=== PATIENT | female | born 1945 | race Caucasian/White ===

== ENCOUNTER 2021-05-28 17:56 | Emergency (ER) | payer MEDICARE, BC, SELFPAY ==
[2021-05-28 18:22] VITALS: BP 144/81; PULSE 101; RESP 16; TEMP 38.4; O2SAT 94; BMI 37.9
[2021-05-28 18:45] LABS: UTC Influenza A Antigen Negative (Negative); UTC Influenza B Antigen Negative (Negative)
--- NOTE | 2021-05-28 18:45 | HMH.EDUTC ---
[facility] [place] Disposition Clinical Impression: Fever of unknown origin Nausea and vomiting Qualifiers: Vomiting type: unspecified Qualified Code(s): R11.2 - Nausea with vomiting, unspecified Disposition: Left Against Medical Advice Condition on Discharge: Fair Referrals: Kiran Gant MD [Primary Care Provider] - As needed Medical Decision Making - Servando Inquiry Pt receiving controlled substance: No Servando was queried for this patient: No Vital Signs: 05/28/21 18:22 Temperature 101.1 F H Temperature Source Oral Pulse Rate [Left] 101 H Respiratory Rate 16 Blood Pressure [Right Arm] 144/81 H Blood Pressure Mean [Right Arm] 102 02 Sat by Pulse Oximetry 94 L - Lab Data Lab results reviewed: Yes: I reviewed the patient's lab results. Lab Results 05/28/21 18:24: Influenza Type A Ag Negative, Influenza Type B Ag Negative 05/28/21 18:47: Group A Strep Rapid Negative Orders (Tests/Meds): ED MEDICATIONS Discontinued Medications Generic Name Dose Route Start Last Admin Trade Name Promise PRN Reason Stop Dose Admin Acetaminophen 650 mg 05/28/21 18:25 05/28/21 18:26 Acetaminophen 325mg Tab PO 05/28/21 18:26 650 mg ONCE ONE Administration Ondansetron HCl 4 mg 05/28/21 18:46 05/28/21 18:55 Ondansetron 4mg Odt SL 05/28/21 18:47 4 mg ONCE ONE Administration ORDERS Category Date Time Status Strep Screen Confirmation Stat Micro 05/28/21 18:47 Received Medical Decision Narrative: Patient flu test back and negative Patient states that nely helped with nausea Discussed with patient due to scratchy throat and recommended strep test and she agreed awaiting strep test results While waiting for strep test results patient got up and walked out of [facility] and said we can call her she needed to leave again recommended that patient stay and wait results and she said she wanted to go home and left [facility] [place] HPI - General Stated complaint: fever Time Seen by Provider: 05/28/21 18:45 Mode of Arrival: Ambulatory Source of Information: Patient Limitations: No Limitations Description of Symptoms (Recalled from Triage Doc. by RN): pt c/o n/v and chills since this am. HEENT Symptoms (Recalled from RN notes): No Resp Symptoms (Recalled from RN notes): No Skin Symptoms (Recalled from RN notes): No MS Symptoms (Recalled from RN notes): No Functional Status (Recalled from RN notes): wnl - History of Present Illness Provider Complaint: Patient states that she has been feeling achy today States that earlier she was going to a game and started vomiting States that she is feeling sick at her stomach and having chills and body aches like she may have the flu and her throat felt scratchy - Related Data Allergies Allergy/AdvReac Type Severity Reaction Status Date / Time celecoxib [From CELEBREX] Allergy Unknown Verified 05/28/21 18:26 - Worker's Comp Is this a Worker's Comp case?: No H History - Hepatitis A Screen Drug use history?: No High risk sexual behaviors?: No History of sexually transmitted infection?: No Currently employed?: No Childcare worker?: No Do you have indoor plumbing?: Yes Do you have electricity?: Yes Attestation statement:: This patient has been screened for Hepatitis A risk factors. I have reviewed the patient's past medical history: Yes ROS Obtained: Yes All systems reviewed & no additional complaints, Yes Systems reviewed as appropriate & no additional complaints - Constitutional Constitutional: Reports system reviewed and no additional complaints, except as docu, Reports body ache, Reports chills, Reports fever(s) - ENT Ears, Nose, Mouth, and Throat: Reports system reviewed and no additional complaints, except as docu - Cardiovascular Cardiovascular: Reports system reviewed and no additional complaints, except as docu - Respiratory Respiratory: Reports system reviewed and no additional complaints, except as docu - Gastrointestinal Gastrointest
--- NOTE | 2021-05-28 19:06 | PC.NURSE ---
pt AMA. pt would not sign paperwork.
[2021-05-28 19:11] LABS: Strep Scrn Group A (Rapid) Negative (Negative)
[2021-05-28 19:18] VITALS: BP 0/0; PULSE 0; RESP 0; TEMP -17.7; TEMP 0
== END 2021-05-28 19:18 | disposition left against medical advice (07) ==
PROVIDERS: Emergency Provider Nurse Practitioner; PCP Family Medicine
DX: R50.9 Fever, unspecified (principal); R11.2 Nausea with vomiting, unspecified
CPT/HCPCS: 87430; 87804; 99212; G0463

== ENCOUNTER → 2022-02-03 09:11 | Outpatient (CLI) | payer MEDICARE, BC, SELFPAY ==
[2022-02-03 18:57] LABS: Alanine Aminotransferase 33 U/L (12-78); Albumin Level 3.8 g/dl (3.5-5.0); Albumin/Globulin Ratio 1.3 (1.1-1.8); Alkaline Phosphatase 132 U/L (38-126); Anion Gap 10.3 mEq/L (5-15); Aspartate Amino Transferase 39 U/L (14-36); Blood Urea Nitrogen 19 mg/dl (7-17); Calcium 9.2 mg/dl (8.4-10.2); Carbon Dioxide 29 mmol/L (22.0-30.0); Chloride 104 mmol/L (98-107); Chol/HDL Ratio 3.8 (1-3.5); Cholesterol 209 mg/dl (140-200); Estimated Glomerular Filt Rate 48 ml/min (>60); GFR (African American) 58 ML/MIN (>60); Glucose 115 mg/dl (74-100); HDL Cholesterol 55 mg/dl (40-60); Potassium 4.3 mmoL/L (3.5-5.1); Sodium 139 mmol/L (136-145); Total Protein,Serum 6.8 g/dl (6.3-8.2); Triglycerides 126 mg/dl (30-150); VLDL Cholesterol 25 mg/dL (0-40)
[2022-02-03 19:15] LABS: Hemoglobin A1C 5.8 % (4.0-6.0)
[2022-02-03 19:44] LABS: Direct LDL Cholesterol 120.12 mg/dL (100-129)
== END ==
PROVIDERS: PCP Nurse Practitioner; Visit Provider Nurse Practitioner
DX: I10 Essential (primary) hypertension (principal); E78.5 Hyperlipidemia, unspecified; R73.01 Impaired fasting glucose
CPT/HCPCS: 80053; 80061; 83036

== ENCOUNTER → 2023-01-03 06:43 | Outpatient (CLI) | payer MEDICARE, BC, SELFPAY ==
[2023-01-03 18:13] LABS: Basophils # 0.1 K/mm3 (0-0.2); Basophils % 1.1 % (0.1-2.0); Eosinophils # 0.1 K/mm3 (0.0-0.4); Eosinophils % 2.4 % (0.1-12.0); Hematocrit 41.3 % (37.0-47.0); Hemoglobin 13.3 g/dL (12.2-16.2); Lymphocytes # 1.5 K/mm3 (0.7-4.5); Lymphocytes % 28.3 % (10-50); Mean Corpuscular HGB Conc 32.2 g/dL (31.8-35.4); Mean Corpuscular Hemoglobin 32.7 pg (27.0-31.2); Mean Corpuscular Volume 101.6 fl (81-99); Mean Platelet Volume 10.3 fl (7.4-10.4); Monocytes # 0.3 K/mm3 (0.1-1.0); Monocytes % 6.5 % (1.7-9.3); Neutrophils # 3.2 K/mm3 (1.8-7.8); Neutrophils % 61.7 % (37.0-80.0); Platelet Count 135 K/mm3 (142-424); Red Blood Count 4.07 M/mm3 (4.20-5.40); Red Cell Distribution Width 14.4 % (11.5-17.5); White Blood Count 5.1 K/mm3 (4.8-10.8)
[2023-01-03 18:24] LABS: Albumin Level 3.1 g/dl (3.5-5.0); Albumin/Globulin Ratio 0.9 (1.1-1.8); Alkaline Phosphatase 481 U/L (38-126); Bilirubin,Total 2.1 mg/dl (0.2-1.3); Calcium 8.7 mg/dl (8.4-10.2); Chloride 104 mmol/L (98-107); Globulin 3.4 g/dL (1.3-3.2); Glucose 143 mg/dl (74-100); HDL Cholesterol 44 mg/dl (40-60); Potassium 3.9 mmoL/L (3.5-5.1); Sodium 135 mmol/L (136-145); Total Protein,Serum 6.5 g/dl (6.3-8.2)
[2023-01-03 18:25] LABS: Alanine Aminotransferase 89 U/L (12-78); Anion Gap 8.9 mEq/L (5-15); Aspartate Amino Transferase 155 U/L (14-36); Blood Urea Nitrogen 16 mg/dl (7-17); Carbon Dioxide 26 mmol/L (22.0-30.0); Cholesterol 176 mg/dl (140-200); Creatinine,Urine Random 122 mg/dL (Not Estab.); Estimated Glomerular Filt Rate 61 ml/min (>60); GFR (African American) 73 ML/MIN (>60); Triglycerides 104 mg/dl (30-150); VLDL Cholesterol 21 mg/dL (0-40)
[2023-01-03 18:27] LABS: Microalbumin/Creatinine Ratio 5.2
[2023-01-03 18:40] LABS: Hemoglobin A1C 5.5 % (4.0-6.0)
[2023-01-03 18:54] LABS: Thyroid Stimulating Hormone 2.05 uIU/mL (0.465-4.68)
== END ==
PROVIDERS: PCP Nurse Practitioner; Visit Provider Nurse Practitioner
DX: E78.5 Hyperlipidemia, unspecified (principal); I10 Essential (primary) hypertension; M19.90 Unspecified osteoarthritis, unspecified site; R73.01 Impaired fasting glucose; R50.9 Fever, unspecified
CPT/HCPCS: 80053; 80061; 82043; 82570; 83036; 84443; 85025

== ENCOUNTER → 2023-02-02 23:26 | Outpatient (CLI) | payer MEDICARE, BC, SELFPAY | LOC: LAB.DROPOF 23:27 | PROVIDERS: PCP Nurse Practitioner; Visit Provider Nurse Practitioner | DX: D69.6 Thrombocytopenia, unspecified (principal); R79.89 Other specified abnormal findings of blood chemistry | CPT/HCPCS: 80053; 85025 ==

== ENCOUNTER 2023-05-10 18:14 | Outpatient (CLI) | payer MEDICARE, BC, SELFPAY ==
[2023-05-10 18:01] LABS: Basophils # 0.1 K/mm3 (0-0.2); Basophils % 1.4 % (0.1-2.0); Eosinophils # 0.1 K/mm3 (0.0-0.4); Eosinophils % 2.9 % (0.1-12.0); Hematocrit 38.6 % (37.0-47.0); Hemoglobin 12.1 g/dL (12.2-16.2); Lymphocytes # 1.6 K/mm3 (0.7-4.5); Mean Corpuscular HGB Conc 31.4 g/dL (31.8-35.4); Mean Corpuscular Hemoglobin 34.2 pg (27.0-31.2); Mean Platelet Volume 9.5 fl (7.4-10.4); Monocytes # 0.3 K/mm3 (0.1-1.0); Monocytes % 7.1 % (1.7-9.3); Neutrophils # 2.6 K/mm3 (1.8-7.8); Neutrophils % 55.5 % (37.0-80.0); Platelet Count 106 K/mm3 (142-424); Red Blood Count 3.55 M/mm3 (4.20-5.40); White Blood Count 4.7 K/mm3 (4.8-10.8)
[2023-05-10 18:13] LABS: Chloride 107 mmol/L (98-107); Potassium 3.6 mmoL/L (3.5-5.1); Sodium 137 mmol/L (136-145)
[2023-05-10 18:16] LABS: Alanine Aminotransferase 28 U/L (12-78); Albumin Level 2.8 g/dl (3.5-5.0); Albumin/Globulin Ratio 0.8 (1.1-1.8); Alkaline Phosphatase 202 U/L (38-126); Anion Gap 5.6 mEq/L (5-15); Aspartate Amino Transferase 53 U/L (14-36); Bilirubin,Total 1.8 mg/dl (0.2-1.3); Blood Urea Nitrogen 14 mg/dl (7-17); Calcium 8.7 mg/dl (8.4-10.2); Carbon Dioxide 28 mmol/L (22.0-30.0); Estimated Glomerular Filt Rate 54 ml/min (>60); GFR (African American) 65 ML/MIN (>60); Globulin 3.3 g/dL (1.3-3.2); Glucose 103 mg/dl (74-100); Total Protein,Serum 6.1 g/dl (6.3-8.2)
[2023-05-10 18:30] LABS: Hemoglobin A1C 4.5 % (4.0-6.0)
[2023-05-10 19:12] LABS: Creatinine,Urine Random 211 mg/dL (Not Estab.)
[2023-05-10 19:36] LABS: Microalbumin/Creatinine Ratio 4.5
== END 2023-05-10 23:59 ==
LOC: LAB.DROPOF 18:15
PROVIDERS: PCP Nurse Practitioner; Visit Provider Nurse Practitioner
DX: R73.01 Impaired fasting glucose (principal); I10 Essential (primary) hypertension; R79.89 Other specified abnormal findings of blood chemistry; R30.0 Dysuria; B96.89 Other specified bacterial agents as the cause of diseases classified elsewhere
CPT/HCPCS: 80053; 82043; 82570; 83036; 85025; 87086

== ENCOUNTER 2023-06-20 16:00 | Outpatient (CLI) | payer MEDICARE, BC, SELFPAY ==
[2023-06-20 19:02] LABS: Chloride 105 mmol/L (98-107); Sodium 139 mmol/L (136-145)
[2023-06-20 19:03] LABS: Potassium 3.7 mmoL/L (3.5-5.1)
[2023-06-20 19:06] LABS: Anion Gap 8.7 mEq/L (5-15); Blood Urea Nitrogen 12 mg/dl (7-17); Calcium 9.2 mg/dl (8.4-10.2); Carbon Dioxide 29 mmol/L (22.0-30.0); Estimated Glomerular Filt Rate 61 ml/min (>60); GFR (African American) 73 ML/MIN (>60); Glucose 113 mg/dl (74-100)
[2023-06-20 19:22] LABS: INR 1.21 (0.9-1.1); Prothrombin Time 12.9 seconds (10.1-12.5)
== END 2023-06-20 23:59 | disposition home or self-care (01) ==
LOC: LAB.DROPOF 06-21 10:03
PROVIDERS: PCP Nurse Practitioner; Visit Provider Nurse Practitioner
DX: I10 Essential (primary) hypertension (principal); Z79.01 Long term (current) use of anticoagulants
CPT/HCPCS: 80048; 85610

== ENCOUNTER 2023-10-26 19:16 | Outpatient (CLI) | payer MEDICARE, BC, SELFPAY ==
[2023-10-26 18:24] LABS: Basophils % 0.9 % (0.1-2.0); Eosinophils # 0.1 K/mm3 (0.0-0.4); Eosinophils % 2.3 % (0.1-12.0); Hematocrit 22.6 % (37.0-47.0); Lymphocytes # 1.2 K/mm3 (0.7-4.5); Lymphocytes % 29.4 % (10-50); Mean Corpuscular HGB Conc 30.3 g/dL (31.8-35.4); Mean Corpuscular Volume 108.9 fl (81-99); Mean Platelet Volume 9.6 fl (7.4-10.4); Monocytes # 0.2 K/mm3 (0.1-1.0); Neutrophils # 2.5 K/mm3 (1.8-7.8); Neutrophils % 61.4 % (37.0-80.0); Platelet Count 114 K/mm3 (142-424); Red Blood Count 2.07 M/mm3 (4.20-5.40); Red Cell Distribution Width 16.1 % (11.5-17.5); White Blood Count 4.1 K/mm3 (4.8-10.8)
[2023-10-26 19:47] LABS: Microalbumin < 6.000 mg/L (0-16.7)
[2023-10-26 19:49] LABS: Creatinine,Urine Random 178 mg/dL (Not Estab.)
[2023-10-26 19:50] LABS: Alanine Aminotransferase 23 U/L (12-78); Albumin Level 2.7 g/dl (3.5-5.0); Albumin/Globulin Ratio 0.8 (1.1-1.8); Alkaline Phosphatase 101 U/L (38-126); Anion Gap 6.1 mEq/L (5-15); Aspartate Amino Transferase 38 U/L (14-36); Bilirubin,Total 0.7 mg/dl (0.2-1.3); Blood Urea Nitrogen 34 mg/dl (7-17); Calcium 8.6 mg/dl (8.4-10.2); Carbon Dioxide 25 mmol/L (22.0-30.0); Chloride 110 mmol/L (98-107); Chol/HDL Ratio 2.8 (1-3.5); Cholesterol 141 mg/dl (140-200); Estimated Glomerular Filt Rate 27 ml/min (>60); GFR (African American) 33 ML/MIN (>60); Globulin 3.6 g/dL (1.3-3.2); Glucose 94 mg/dl (74-100); HDL Cholesterol 50 mg/dl (40-60); Potassium 4.1 mmoL/L (3.5-5.1); Sodium 137 mmol/L (136-145); Total Protein,Serum 6.3 g/dl (6.3-8.2); Triglycerides 53 mg/dl (30-150); VLDL Cholesterol 11 mg/dL (0-40)
[2023-10-26 19:54] LABS: Hemoglobin 6.8 g/dL (12.2-16.2)
[2023-10-26 20:02] LABS: Direct LDL Cholesterol 63.35 mg/dL (100-129)
[2023-10-26 20:21] LABS: Thyroid Stimulating Hormone 2.72 uIU/mL (0.465-4.68)
[2023-10-26 20:41] LABS: Vitamin B12 492 pg/mL (239-931)
== END 2023-10-26 23:59 | disposition home or self-care (01) ==
LOC: LAB.DROPOF 19:19
PROVIDERS: PCP Nurse Practitioner; Visit Provider Nurse Practitioner
DX: I10 Essential (primary) hypertension (principal); E78.5 Hyperlipidemia, unspecified; R73.01 Impaired fasting glucose; K74.60 Unspecified cirrhosis of liver; R53.83 Other fatigue
CPT/HCPCS: 80053; 80061; 82043; 82570; 82607; 83036; 84443; 85025

== ENCOUNTER 2023-11-07 11:19 | Outpatient (CLI) | payer MEDICARE, BC, SELFPAY ==
[2023-11-07 20:15] LABS: Basophils % 0.9 % (0.1-2.0); Eosinophils # 0.1 K/mm3 (0.0-0.4); Eosinophils % 3.9 % (0.1-12.0); Hematocrit 25.4 % (37.0-47.0); Hemoglobin 7.9 g/dL (12.2-16.2); Mean Corpuscular HGB Conc 31.2 g/dL (31.8-35.4); Mean Corpuscular Hemoglobin 32.8 pg (27.0-31.2); Mean Corpuscular Volume 105.1 fl (81-99); Mean Platelet Volume 9.2 fl (7.4-10.4); Monocytes # 0.2 K/mm3 (0.1-1.0); Monocytes % 7.5 % (1.7-9.3); Neutrophils # 1.4 K/mm3 (1.8-7.8); Neutrophils % 51.7 % (37.0-80.0); Platelet Count 111 K/mm3 (142-424); Red Blood Count 2.42 M/mm3 (4.20-5.40); Red Cell Distribution Width 16.2 % (11.5-17.5); White Blood Count 2.7 K/mm3 (4.8-10.8)
[2023-11-07 20:42] LABS: Albumin Level 2.8 g/dl (3.5-5.0); Chloride 106 mmol/L (98-107); Sodium 137 mmol/L (136-145)
[2023-11-07 20:45] LABS: Alanine Aminotransferase 22 U/L (12-78); Albumin/Globulin Ratio 0.8 (1.1-1.8); Alkaline Phosphatase 108 U/L (38-126); Aspartate Amino Transferase 40 U/L (14-36); Bilirubin,Total 0.5 mg/dl (0.2-1.3); Blood Urea Nitrogen 20 mg/dl (7-17); Calcium 8.9 mg/dl (8.4-10.2); Carbon Dioxide 26 mmol/L (22.0-30.0); Estimated Glomerular Filt Rate 43 ml/min (>60); GFR (African American) 52 ML/MIN (>60); Globulin 3.6 g/dL (1.3-3.2); Glucose 133 mg/dl (74-100); Total Protein,Serum 6.4 g/dl (6.3-8.2)
== END 2023-11-07 23:59 | disposition home or self-care (01) ==
LOC: LAB.DROPOF 11-08 11:19
PROVIDERS: PCP Nurse Practitioner; Visit Provider Nurse Practitioner
DX: K92.2 Gastrointestinal hemorrhage, unspecified (principal); D50.0 Iron deficiency anemia secondary to blood loss (chronic); I85.00 Esophageal varices without bleeding; N17.9 Acute kidney failure, unspecified
CPT/HCPCS: 80053; 85025

== ENCOUNTER 2023-11-15 10:02 | Outpatient (CLI) | payer MEDICARE, BC, SELFPAY ==
[2023-11-15 18:19] LABS: Eosinophils # 0.1 K/mm3 (0.0-0.4); Eosinophils % 1.5 % (0.1-12.0); Hematocrit 24.7 % (37.0-47.0); Hemoglobin 7.6 g/dL (12.2-16.2); Lymphocytes # 0.9 K/mm3 (0.7-4.5); Lymphocytes % 23.1 % (10-50); Mean Corpuscular HGB Conc 30.8 g/dL (31.8-35.4); Mean Corpuscular Hemoglobin 31.2 pg (27.0-31.2); Mean Corpuscular Volume 101.4 fl (81-99); Monocytes # 0.2 K/mm3 (0.1-1.0); Monocytes % 5.4 % (1.7-9.3); Neutrophils # 2.7 K/mm3 (1.8-7.8); Neutrophils % 68.9 % (37.0-80.0); Platelet Count 153 K/mm3 (142-424); Red Blood Count 2.44 M/mm3 (4.20-5.40); Red Cell Distribution Width 17.2 % (11.5-17.5); White Blood Count 3.9 K/mm3 (4.8-10.8)
[2023-11-15 18:36] LABS: Alanine Aminotransferase 27 U/L (12-78); Albumin Level 2.9 g/dl (3.5-5.0); Albumin/Globulin Ratio 0.8 (1.1-1.8); Alkaline Phosphatase 93 U/L (38-126); Anion Gap 5.4 mEq/L (5-15); Aspartate Amino Transferase 38 U/L (14-36); Bilirubin,Total 0.9 mg/dl (0.2-1.3); Blood Urea Nitrogen 21 mg/dl (7-17); Calcium 8.8 mg/dl (8.4-10.2); Carbon Dioxide 24 mmol/L (22.0-30.0); Chloride 109 mmol/L (98-107); Estimated Glomerular Filt Rate 43 ml/min (>60); GFR (African American) 52 ML/MIN (>60); Globulin 3.5 g/dL (1.3-3.2); Glucose 158 mg/dl (74-100); Potassium 3.4 mmoL/L (3.5-5.1); Sodium 135 mmol/L (136-145); Total Protein,Serum 6.4 g/dl (6.3-8.2)
== END 2023-11-15 23:59 | disposition home or self-care (01) ==
LOC: LAB.DROPOF 11-16 10:02
PROVIDERS: PCP Nurse Practitioner; Visit Provider Nurse Practitioner
DX: D50.0 Iron deficiency anemia secondary to blood loss (chronic) (principal); K92.2 Gastrointestinal hemorrhage, unspecified; I85.00 Esophageal varices without bleeding; N17.9 Acute kidney failure, unspecified; K74.60 Unspecified cirrhosis of liver; I10 Essential (primary) hypertension
CPT/HCPCS: 80053; 85025

== ENCOUNTER 2023-11-20 10:26 | Outpatient (CLI) | payer MEDICARE, BC, SELFPAY ==
[2023-11-20 18:45] LABS: Basophils % 0.6 % (0.1-2.0); Eosinophils # 0.1 K/mm3 (0.0-0.4); Eosinophils % 2.2 % (0.1-12.0); Hematocrit 22.6 % (37.0-47.0); Hemoglobin 7.1 g/dL (12.2-16.2); Lymphocytes # 1.1 K/mm3 (0.7-4.5); Lymphocytes % 26.6 % (10-50); Mean Corpuscular HGB Conc 31.5 g/dL (31.8-35.4); Mean Corpuscular Hemoglobin 32.6 pg (27.0-31.2); Mean Corpuscular Volume 103.5 fl (81-99); Mean Platelet Volume 8.8 fl (7.4-10.4); Monocytes # 0.3 K/mm3 (0.1-1.0); Monocytes % 5.8 % (1.7-9.3); Neutrophils # 2.7 K/mm3 (1.8-7.8); Neutrophils % 64.8 % (37.0-80.0); Platelet Count 128 K/mm3 (142-424); Red Blood Count 2.18 M/mm3 (4.20-5.40); White Blood Count 4.2 K/mm3 (4.8-10.8)
[2023-11-20 19:22] LABS: Chloride 110 mmol/L (98-107); Sodium 138 mmol/L (136-145)
[2023-11-20 19:23] LABS: Potassium 3.6 mmoL/L (3.5-5.1)
[2023-11-20 19:26] LABS: Anion Gap 9.6 mEq/L (5-15); Blood Urea Nitrogen 22 mg/dl (7-17); Calcium 8.8 mg/dl (8.4-10.2); Carbon Dioxide 22 mmol/L (22.0-30.0); Estimated Glomerular Filt Rate 48 ml/min (>60); GFR (African American) 58 ML/MIN (>60); Glucose 132 mg/dl (74-100)
== END 2023-11-20 23:59 | disposition home or self-care (01) ==
LOC: LAB.DROPOF 11-21 10:26
PROVIDERS: PCP Nurse Practitioner; Visit Provider Nurse Practitioner
DX: D50.0 Iron deficiency anemia secondary to blood loss (chronic) (principal); N17.9 Acute kidney failure, unspecified
CPT/HCPCS: 80048; 85025

== ENCOUNTER 2023-11-23 18:23 | Outpatient (CLI) | payer MEDICARE, BC, SELFPAY ==
[2023-11-23 18:06] LABS: Basophils % 0.6 % (0.1-2.0); Eosinophils # 0.1 K/mm3 (0.0-0.4); Eosinophils % 1.8 % (0.1-12.0); Hematocrit 30.1 % (37.0-47.0); Hemoglobin 9.8 g/dL (12.2-16.2); Lymphocytes % 22.7 % (10-50); Mean Corpuscular HGB Conc 32.4 g/dL (31.8-35.4); Mean Corpuscular Hemoglobin 31.7 pg (27.0-31.2); Mean Corpuscular Volume 97.7 fl (81-99); Mean Platelet Volume 8.2 fl (7.4-10.4); Monocytes # 0.3 K/mm3 (0.1-1.0); Monocytes % 6.2 % (1.7-9.3); Neutrophils # 2.9 K/mm3 (1.8-7.8); Neutrophils % 68.8 % (37.0-80.0); Platelet Count 125 K/mm3 (142-424); Red Blood Count 3.08 M/mm3 (4.20-5.40); Red Cell Distribution Width 20.7 % (11.5-17.5); White Blood Count 4.2 K/mm3 (4.8-10.8)
[2023-11-23 18:13] LABS: Albumin Level 2.9 g/dl (3.5-5.0); Chloride 110 mmol/L (98-107); Potassium 3.8 mmoL/L (3.5-5.1); Sodium 139 mmol/L (136-145)
[2023-11-23 18:16] LABS: Alanine Aminotransferase 21 U/L (12-78); Albumin/Globulin Ratio 0.8 (1.1-1.8); Alkaline Phosphatase 106 U/L (38-126); Anion Gap 9.8 mEq/L (5-15); Aspartate Amino Transferase 46 U/L (14-36); Blood Urea Nitrogen 20 mg/dl (7-17); Calcium 8.8 mg/dl (8.4-10.2); Carbon Dioxide 23 mmol/L (22.0-30.0); Estimated Glomerular Filt Rate 43 ml/min (>60); GFR (African American) 52 ML/MIN (>60); Globulin 3.6 g/dL (1.3-3.2); Glucose 120 mg/dl (74-100); Total Protein,Serum 6.5 g/dl (6.3-8.2)
[2023-11-23 19:14] LABS: Hemoglobin A1C 4.3 % (4.0-6.0)
== END 2023-11-23 23:59 | disposition home or self-care (01) ==
LOC: LAB.DROPOF 18:23
PROVIDERS: PCP Nurse Practitioner; Visit Provider Nurse Practitioner
DX: R73.01 Impaired fasting glucose (principal); D50.0 Iron deficiency anemia secondary to blood loss (chronic); N17.9 Acute kidney failure, unspecified; K74.60 Unspecified cirrhosis of liver
CPT/HCPCS: 80053; 83036; 85025

== ENCOUNTER 2023-11-24 18:34 | Outpatient (CLI) | payer MEDICARE, BC, SELFPAY ==
[2023-11-24 19:00] LABS: Occult Blood,Stool Positive (Negative)
== END 2023-11-24 23:59 | disposition home or self-care (01) ==
LOC: LAB.DROPOF 18:36
PROVIDERS: PCP Nurse Practitioner; Visit Provider Nurse Practitioner
DX: D64.9 Anemia, unspecified (principal)
CPT/HCPCS: 82272; G0328

== ENCOUNTER 2023-11-27 10:05 | Outpatient (CLI) | payer MEDICARE, BC, SELFPAY ==
[2023-11-27 19:30] LABS: Basophils % 0.8 % (0.1-2.0); Eosinophils # 0.1 K/mm3 (0.0-0.4); Eosinophils % 2.2 % (0.1-12.0); Hemoglobin 9.7 g/dL (12.2-16.2); Lymphocytes # 1.1 K/mm3 (0.7-4.5); Lymphocytes % 22.2 % (10-50); Mean Corpuscular HGB Conc 31.2 g/dL (31.8-35.4); Mean Corpuscular Hemoglobin 31.4 pg (27.0-31.2); Mean Corpuscular Volume 100.6 fl (81-99); Mean Platelet Volume 9.1 fl (7.4-10.4); Monocytes # 0.5 K/mm3 (0.1-1.0); Monocytes % 8.9 % (1.7-9.3); Neutrophils # 3.4 K/mm3 (1.8-7.8); Platelet Count 140 K/mm3 (142-424); Red Blood Count 3.08 M/mm3 (4.20-5.40); Red Cell Distribution Width 19.7 % (11.5-17.5); White Blood Count 5.1 K/mm3 (4.8-10.8)
[2023-11-27 20:13] LABS: Alanine Aminotransferase 21 U/L (12-78); Albumin Level 2.8 g/dl (3.5-5.0); Albumin/Globulin Ratio 0.8 (1.1-1.8); Alkaline Phosphatase 109 U/L (38-126); Aspartate Amino Transferase 33 U/L (14-36); Bilirubin,Total 0.9 mg/dl (0.2-1.3); Blood Urea Nitrogen 18 mg/dl (7-17); Calcium 8.7 mg/dl (8.4-10.2); Carbon Dioxide 25 mmol/L (22.0-30.0); Chloride 110 mmol/L (98-107); Estimated Glomerular Filt Rate 48 ml/min (>60); GFR (African American) 58 ML/MIN (>60); Globulin 3.5 g/dL (1.3-3.2); Glucose 114 mg/dl (74-100); Sodium 138 mmol/L (136-145); Total Protein,Serum 6.3 g/dl (6.3-8.2)
== END 2023-11-27 23:59 | disposition home or self-care (01) ==
LOC: LAB.DROPOF 11-28 10:06
PROVIDERS: PCP Nurse Practitioner; Visit Provider Nurse Practitioner
DX: D50.0 Iron deficiency anemia secondary to blood loss (chronic) (principal); N17.9 Acute kidney failure, unspecified
CPT/HCPCS: 80053; 85025

== ENCOUNTER 2023-12-04 12:00 | Outpatient (CLI) | payer MEDICARE, BC, SELFPAY ==
[2023-12-04 18:51] LABS: Anion Gap 14.1 mEq/L (5-15); Blood Urea Nitrogen 19 mg/dl (7-17); Calcium 8.5 mg/dl (8.4-10.2); Carbon Dioxide 23 mmol/L (22.0-30.0); Chloride 104 mmol/L (98-107); Estimated Glomerular Filt Rate 43 ml/min (>60); GFR (African American) 52 ML/MIN (>60); Glucose 112 mg/dl (74-100); Potassium 4.1 mmoL/L (3.5-5.1); Sodium 137 mmol/L (136-145)
[2023-12-04 18:57] LABS: Basophils # 0.1 K/mm3 (0-0.2); Basophils % 1.5 % (0.1-2.0); Eosinophils # 0.1 K/mm3 (0.0-0.4); Eosinophils % 1.7 % (0.1-12.0); Hematocrit 29.7 % (37.0-47.0); Hemoglobin 9.3 g/dL (12.2-16.2); Lymphocytes # 0.9 K/mm3 (0.7-4.5); Lymphocytes % 20.7 % (10-50); Mean Corpuscular HGB Conc 31.4 g/dL (31.8-35.4); Mean Corpuscular Hemoglobin 31.1 pg (27.0-31.2); Mean Corpuscular Volume 99.1 fl (81-99); Mean Platelet Volume 8.9 fl (7.4-10.4); Monocytes # 0.3 K/mm3 (0.1-1.0); Monocytes % 7.5 % (1.7-9.3); Neutrophils # 2.9 K/mm3 (1.8-7.8); Neutrophils % 68.6 % (37.0-80.0); Platelet Count 144 K/mm3 (142-424); Red Cell Distribution Width 18.3 % (11.5-17.5); White Blood Count 4.2 K/mm3 (4.8-10.8)
== END 2023-12-04 23:59 | disposition home or self-care (01) ==
LOC: LAB.DROPOF 12-05 13:08
PROVIDERS: PCP Nurse Practitioner; Visit Provider Nurse Practitioner
DX: D50.0 Iron deficiency anemia secondary to blood loss (chronic) (principal); N17.9 Acute kidney failure, unspecified; R19.5 Other fecal abnormalities
CPT/HCPCS: 80048; 85025

== ENCOUNTER 2024-01-01 11:35 | Outpatient (CLI) | payer MEDICARE, BC, SELFPAY ==
[2024-01-01 18:18] LABS: Basophils # 0.1 K/mm3 (0-0.2); Basophils % 1.3 % (0.1-2.0); Eosinophils # 0.1 K/mm3 (0.0-0.4); Eosinophils % 2.8 % (0.1-12.0); Hematocrit 32.3 % (37.0-47.0); Hemoglobin 10.1 g/dL (12.2-16.2); Lymphocytes % 24.3 % (10-50); Mean Corpuscular HGB Conc 31.1 g/dL (31.8-35.4); Mean Corpuscular Hemoglobin 31.1 pg (27.0-31.2); Mean Platelet Volume 9.1 fl (7.4-10.4); Monocytes # 0.4 K/mm3 (0.1-1.0); Monocytes % 8.9 % (1.7-9.3); Neutrophils # 2.6 K/mm3 (1.8-7.8); Neutrophils % 62.7 % (37.0-80.0); Platelet Count 117 K/mm3 (142-424); Red Blood Count 3.23 M/mm3 (4.20-5.40); Red Cell Distribution Width 17.4 % (11.5-17.5); White Blood Count 4.1 K/mm3 (4.8-10.8)
[2024-01-01 19:48] LABS: Alanine Aminotransferase 31 U/L (12-78); Albumin Level 3.6 g/dl (3.5-5.0); Albumin/Globulin Ratio 1.3 (1.1-1.8); Alkaline Phosphatase 104 U/L (38-126); Aspartate Amino Transferase 66 U/L (14-36); Bilirubin,Total 0.6 mg/dl (0.2-1.3); Blood Urea Nitrogen 29 mg/dl (7-17); Calcium 9.5 mg/dl (8.4-10.2); Carbon Dioxide 31 mmol/L (22.0-30.0); Chloride 96 mmol/L (98-107); Estimated Glomerular Filt Rate 26 ml/min (>60); GFR (African American) 31 ML/MIN (>60); Globulin 2.8 g/dL (1.3-3.2); Glucose 110 mg/dl (74-100); Sodium 135 mmol/L (136-145); Total Protein,Serum 6.4 g/dl (6.3-8.2)
== END 2024-01-01 23:59 | disposition home or self-care (01) ==
LOC: LAB.DROPOF 01-02 08:46
PROVIDERS: PCP Nurse Practitioner; Visit Provider Nurse Practitioner
DX: D50.0 Iron deficiency anemia secondary to blood loss (chronic) (principal); K74.60 Unspecified cirrhosis of liver
CPT/HCPCS: 80053; 85025

== ENCOUNTER 2024-02-05 09:16 | Outpatient (CLI) | payer MEDICARE, BC, SELFPAY ==
[2024-02-05 18:41] LABS: Basophils # 0.1 K/mm3 (0-0.2); Basophils % 1.5 % (0.1-2.0); Eosinophils # 0.1 K/mm3 (0.0-0.4); Eosinophils % 1.5 % (0.1-12.0); Hematocrit 27.9 % (37.0-47.0); Hemoglobin 8.6 g/dL (12.2-16.2); Lymphocytes % 24.8 % (10-50); Mean Corpuscular HGB Conc 30.8 g/dL (31.8-35.4); Mean Corpuscular Hemoglobin 33.6 pg (27.0-31.2); Mean Platelet Volume 10.5 fl (7.4-10.4); Monocytes # 0.3 K/mm3 (0.1-1.0); Monocytes % 7.6 % (1.7-9.3); Neutrophils # 2.6 K/mm3 (1.8-7.8); Neutrophils % 64.4 % (37.0-80.0); Platelet Count 123 K/mm3 (142-424); Red Blood Count 2.56 M/mm3 (4.20-5.40); Red Cell Distribution Width 16.7 % (11.5-17.5); White Blood Count 4.1 K/mm3 (4.8-10.8)
[2024-02-05 19:04] LABS: Alanine Aminotransferase 41 U/L (12-78); Albumin Level 3.3 g/dl (3.5-5.0); Albumin/Globulin Ratio 1.2 (1.1-1.8); Alkaline Phosphatase 95 U/L (38-126); Anion Gap 12.4 mEq/L (5-15); Aspartate Amino Transferase 51 U/L (14-36); Bilirubin,Total 0.8 mg/dl (0.2-1.3); Blood Urea Nitrogen 31 mg/dl (7-17); Calcium 9.5 mg/dl (8.4-10.2); Carbon Dioxide 22 mmol/L (22.0-30.0); Chloride 105 mmol/L (98-107); Estimated Glomerular Filt Rate 29 ml/min (>60); GFR (African American) 35 ML/MIN (>60); Globulin 2.8 g/dL (1.3-3.2); Glucose 136 mg/dl (74-100); Potassium 4.4 mmoL/L (3.5-5.1); Sodium 135 mmol/L (136-145); Total Protein,Serum 6.1 g/dl (6.3-8.2)
== END 2024-02-05 23:59 | disposition home or self-care (01) ==
LOC: LAB.DROPOF 02-06 09:16
PROVIDERS: PCP Nurse Practitioner; Visit Provider Nurse Practitioner
DX: K74.60 Unspecified cirrhosis of liver (principal); D50.0 Iron deficiency anemia secondary to blood loss (chronic)
CPT/HCPCS: 80053; 85025